=== PATIENT | female | born 1985 | race Two or more races ===

== ENCOUNTER 2017-03-27 23:17 | Emergency (ER) | payer MEDICAID ==
[~2017-03-27] VITALS: Ht 157.5 cm; Wt 108.9 kg
[~2017-03-27 23:17] MED LIST: ACET650T11 PO
[2017-03-27 23:18] VITALS: BP 127/79
== END 2017-03-28 00:40 | disposition home or self-care (01) ==
LOC: ER 23:27
DX: J02.9 Acute pharyngitis, unspecified (principal); F41.9 Anxiety disorder, unspecified
CPT/HCPCS: 99283; A4606; Z7610

== ENCOUNTER 2017-05-30 02:12 | Emergency (ER) | payer BC, OTHER ==
[~2017-05-30] VITALS: Ht 157.5 cm; Wt 108.9 kg
--- NOTE | 2017-05-30 02:25 | NUR ---
URINE SPECIMEN OBTAINED AND SENT TO THE LAB.
--- NOTE | 2017-05-30 02:30 | NUR ---
PT AMBULATORY TO ER BED 12. BIBSELD C/O FEELING DIZZY, FEVER/CHILLS, BACK PAIN, FREQUENT URINATION x 1 WEEK. PT PLACED IN GOWN AND ON SASH MAKER. VSS/RESP EVEN UNLABORED/NAD NOTED/SKIN WARM AND DRY/DENIES N-V-D/ AFEBRILE/AOX4. AWAITING MD NAIR.
[2017-05-30 02:55] LABS: BILIRUBIN,URINE NEGATIVE (NEGATIVE); BLOOD, URINE NEGATIVE Ery/uL (NEGATIVE); COLOR,URINE YELLOW (YELLOW); KETONES,URINE NEGATIVE (NEGATIVE); LEUKOCYTE ESTERASE ,URINE NEGATIVE (NEGATIVE); NITRITE, URINE NEGATIVE (NEGATIVE); PH,URINE 6.5 (5.0-8.0); PROTEIN,URINE NEGATIVE (NEGATIVE); UGLUCOSE NEGATIVE (NEGATIVE); UROBILINOGEN,URINE 0.2 EU/dL (0.2)
--- NOTE | 2017-05-30 02:55 | NUR ---
20G IV TO R AC X 1 ATTEMPT USING ASEPTIC TECH, BLOOD HANDED OVER TO THE LAB AT BEDSIDE. IV FLUSHES EASILY WITH NS, NO S/S OF INFILTRATION NOTED.
[2017-05-30] MEDS ORDERED: IV NS 0.9% 1,000 ML BAG IV ONE (03:00)
[2017-05-30 03:03] LABS: BASOPHILS % (AUTO) 0.4 % (0.0-2.0); EOSINOPHILS % (AUTO) 4.1 % (0.0-6.0); HEMATOCRIT 35 % (33-45); HEMOGLOBIN 11.9 g/dL (11.5-14.8); LYMPHOCYTES # (AUTO) 2.9 /CMM (0.8-4.8); LYMPHOCYTES % (AUTO) 27.4 % (20.0-44.0); MEAN CORPUSCULAR HGB CONC 34 g/dl (31.0-36.0); MEAN CORPUSCULAR VOLUME 87 fL (82-100); MONOCYTES # (AUTO) 0.7 /CMM (0.1-1.30); MONOCYTES % (AUTO) 6.4 % (2.0-12.0); NEUTROPHILS # (AUTO) 6.6 /CMM (1.8-8.9); NEUTROPHILS % (AUTO) 61.7 % (43.0-81.0); PLATELET COUNT (AUTO) 300 /CMM (150-450); RDW COEFFICIENT OF VARIATION 14.8 (11.5-15.0); RED BLOOD CELL COUNT(AUTO) 3.98 MIL/uL (4.0-5.2); WHITE BLOOD COUNT (AUTO) 10.7 K/uL (4.3-11.0)
[2017-05-30 03:16] LABS: APPEARANCE,URINE CLEAR (CLEAR)
[2017-05-30 03:21] LABS: CALCIUM, SERUM 8.7 mg/dL (8.5-10.1); CREATININE 0.8 mg/dL (0.6-1.3); POTASSIUM 3.9 mmol/L (3.5-5.1)
[2017-05-30 03:48] LABS: THYROID STIMULATING HORMONE 3.748 uIU/mL (0.358-3.74)
--- NOTE | 2017-05-30 03:50 | NUR ---
MD AT BEDSIDE SPEKING WITH PATIENT.
--- NOTE | 2017-05-30 04:05 | NUR ---
IV removed. Catheter intact and site benign. Pressure and 4x4 applied to site. No bleeding noted. Patient discharged to home in stable condition. Written and verbal after care instructions given. Patient verbalizes understanding of instruction. Patient ambulatory with a steady gait.
[2017-05-30 04:06] VITALS: BP 123/62
[2017-05-30 19:45] LABS: MONOTEST NEGATIVE (NEGATIVE)
== END 2017-05-30 04:07 | disposition home or self-care (01) ==
LOC: ER 02:14
DX: R53.1 Weakness (principal); M79.1 Myalgia; F41.9 Anxiety disorder, unspecified
CPT/HCPCS: 36415; 80048; 81001; 84439; 84443; 84702; 85025; 86308; 96360; 99284; A4606; J7030; Z7610; 81000-TC

== ENCOUNTER 2023-09-26 13:46 | Emergency (ER) | payer BC, OTHER ==
[~2023-09-26] VITALS: Ht 157.5 cm; Wt 117.9 kg
[2023-09-26] MEDS ORDERED: IBUP-1955 PO (16:05)
[2023-09-26] MEDS ORDERED: KETOROLAC TROMETHAMINE 15 MG/ML VIAL ONE (16:17)
[2023-09-26] MEDS: KETOROLAC TROMETHAMINE 15 MG/ML VIAL IM ONE (16:25)
[2023-09-26 17:02] VITALS: BP 123/75; TEMP 98.6; O2SAT 98
== END 2023-09-26 17:04 | disposition home or self-care (01) ==
LOC: ER 13:50
DX: S83.8X2A Sprain of other specified parts of left knee, initial encounter (principal); Z79.1 Long term (current) use of non-steroidal anti-inflammatories (NSAID); X58.XXXA Exposure to other specified factors, initial encounter; Y93.89 Activity, other specified; Y92.89 Other specified places as the place of occurrence of the external cause; Y99.8 Other external cause status
CPT/HCPCS: 99285; 93971; 96372; 73564; J1885